=== PATIENT | female | born 1950 | race Caucasian/White ===

== ENCOUNTER 2020-11-06 14:09 | Emergency (ER) | payer MEDICARE ==
[~2020-11-06] VITALS: Ht 160 cm; Wt 86.0 kg
--- NOTE | 2020-11-06 14:23 | NUR ---
PT walked back from triage with chief complaint of n/v, abd pain starting yesterday. Today developed anal bleeding no blood in emesis or stool.
--- NOTE | 2020-11-06 14:38 | NUR ---
GINNA Cley at bedside for eval
--- NOTE | 2020-11-06 15:40 | NUR ---
THIS RN DOING ROUNDING AND UPDATING VITALS WHEN PT BECAME UPSET STATING "THE PREVIOUS NURSE WOULD NOT TELL ME IF SHE WAS VACCINATED OR NOT. I DESERVE TO KNOW IF MY NURSE IS GOING TO GIVE ME COVID OR NOT." THIS RN EDUCATED PT ON SAFETY PRECAUTIONS IN PLACE TO PREVENT EXPOSURE AND THAT STAFF HAS THE RIGHT TO KEEP THEIR PERSONAL MEDICAL INFORMATION TO THEMSELVS. PT RESTING IN BED. VSS. NADN.
[2020-11-06 15:55] LABS: BASOPHILS % (AUTO) 1 % (0-1); EOSINOPHILS % (AUTO) 3 % (1-7); LYMPHOCYTES % (AUTO) 21 % (22-44); MEAN CORPUSCULAR HEMOGLOBIN 29.7 pg (27.0-34.8); MEAN CORPUSCULAR HGB CONC 34.5 g/dL (32.4-35.8); MEAN PLATELET VOLUME 8.1 fL (7.4-10.4); MONOCYTES % (AUTO) 7 % (2-9); NEUTROPHILS % (AUTO) 68 % (42-75); PLATELET COUNT 149 x10^3/uL (130-400); RED BLOOD COUNT 4.22 x10^6/uL (3.82-5.3); RED CELL DISTRIBUTION WIDTH 14.2 % (9.6-15.2)
[2020-11-06 16:05] LABS: ALBUMIN 3.6 g/dL (3.4-5.0); ANION GAP 7 mmol/L (5-15); CALCIUM 8.6 mg/dL (8.5-10.1); CHLORIDE 110 mmol/L (98-107); CREATININE 0.73 mg/dL (0.55-1.02)
[2020-11-06 17:05] VITALS: BP 137/89
--- NOTE | 2020-11-06 17:06 | NUR ---
Patient given discharge instructions and they have confirmed that they understand the instructions. Patient ambulatory with steady gait. NAD, all questions answered appropriately, denies additional needs at this time. No personal belongings left in room after discharge.
== END 2020-11-06 17:07 | disposition home or self-care (01) ==
LOC: ED 16:00
DX: K62.5 Hemorrhage of anus and rectum (principal); R11.2 Nausea with vomiting, unspecified; R10.30 Lower abdominal pain, unspecified
CPT/HCPCS: 36415; 74021; 80048; 82040; 85025; 99284